=== PATIENT | male | born 1945 | race Caucasian/White ===

== ENCOUNTER → 2019-09-13 13:46 | Outpatient (BNVA) | payer MEDICARE, SELFPAY | PROVIDERS: Family Provider Family Medicine; PCP Family Medicine; Visit Provider Anesthesiology | DX: M47.817 Spondylosis without myelopathy or radiculopathy, lumbosacral region (principal); M51.9 Unspecified thoracic, thoracolumbar and lumbosacral intervertebral disc disorder; Z79.891 Long term (current) use of opiate analgesic | CPT/HCPCS: 99213; 99214 ==

== ENCOUNTER 2019-09-18 15:07 | Outpatient (CLI) | payer OTHER, MEDICARE, SELFPAY ==
--- NOTE | 2019-09-18 14:45 | XR_ITS ---
WS: [id number] XR KUB [id number] REASON FOR EXAM: Gross hematuria FINDINGS: Considerable fecal stasis throughout the colon. The kidneys are poorly seen there is a ques tionable staghorn calculus in the left kidney. Follow-up with ultrasound may be helpful. The lumbar spine shows facet arthropathy L5-S1. There is no air-fluid levels. XR/XR KUB [id number] IMPRESSION: Questionable stones in the left kidney pelvis. Fecal stasis.
== END 2019-09-18 15:08 | disposition home or self-care (01) ==
LOC: RAD 15:13
PROVIDERS: Family Provider Family Medicine; PCP Family Medicine; Visit Provider Urology
DX: R31.0 Gross hematuria (principal)
CPT/HCPCS: 74018; 81001